=== PATIENT | female | born 1990 | race Native Hawaiian/Other Pacific Islander ===

== ENCOUNTER 2023-01-31 15:40 | Emergency (ER) | payer MEDICAID ==
[~2023-01-31] VITALS: Ht 170.2 cm; Wt 65.0 kg
[2023-01-31 15:50] VITALS: BP 104/73; PULSE 88; RESP 18; TEMP 98.1; O2SAT 100
[2023-01-31] MEDS ORDERED: NAPR-56 PO (18:40)
[2023-01-31] MEDS ORDERED: HYDR25SU32 RC (18:40)
== END 2023-01-31 19:42 | disposition home or self-care (01) ==
LOC: ER 15:42
DX: K62.5 Hemorrhage of anus and rectum (principal); Z88.0 Allergy status to penicillin
CPT/HCPCS: 99283

== ENCOUNTER 2023-09-28 01:44 | Emergency (ER) | payer BC, MEDICAID ==
[~2023-09-28] VITALS: Ht 162.6 cm; Wt 57.0 kg
[~2023-09-28 01:44] MED LIST: HYDR25SU32 RC
[2023-09-28] MEDS ORDERED: IBUP-1984 PO (02:02)
[2023-09-28] MEDS: ondansetron/PF 4mg/2ml inj IV ONE (02:31)
[2023-09-28] MEDS: orphenadrine citrate 60mg/2ml inj. IM ONE (02:32)
[2023-09-28] MEDS: morphine 4 MG/ML inj SYRINge IV ONE ×2 (02:32→07:17)
[2023-09-28] MEDS: acetaminophen 325mg tablet PO ONE (02:33)
[2023-09-28 02:34] LABS: BASOPHILS % (AUTO) 0.3 % (0-1); EOSINOPHILS # (AUTO) 0.1 X10'3 (0-0.9); EOSINOPHILS % (AUTO) 0.8 % (0-6); HEMATOCRIT 36.5 % (35.0-45.0); HEMOGLOBIN 12.1 g/dl (12.0-16.0); LYMPHOCYTES # (AUTO) 1.8 X10'3 (1.1-4.8); LYMPHOCYTES % (AUTO) 24.3 % (21-51); MEAN CORPUSCULAR HEMOGLOBIN 27.7 PG (27.0-31.0); MEAN CORPUSCULAR HGB CONC 33.3 g/dL (33.0-36.5); MEAN CORPUSCULAR VOLUME 83.4 FL (78-98); MEAN PLATELET VOLUME 8.4 FL (7.4-10.4); MONOCYTES # (AUTO) 0.7 X10'3 (0-0.9); MONOCYTES % (AUTO) 8.9 % (2-12); NEUTROPHILS % (AUTO) 65.7 % (42-75); PLATELET COUNT 232 X10'3 (140-440); RED BLOOD COUNT 4.37 X10'6 (4.20-5.60); RED CELL DISTRIBUTION WIDTH 14.2 % (11.5-14.5); WHITE BLOOD COUNT 7.5 X10'3 (4.5-11.0)
[2023-09-28 02:47] LABS: ALBUMIN 3.8 G/DL (3.4-5.0); ANION GAP 13 (8-16); BLOOD UREA NITROGEN 11 MG/DL (7-18); BUN/CREATININE RATIO 12.1 (10.0-20.0); CALCIUM 8.7 MG/DL (8.5-10.1); CHLORIDE 107 MMOL/L (99-107); CREATINE KINASE 86 U/L (26-192); CREATININE 0.91 MG/DL (0.40-0.90); GLUCOSE 95 MG/DL (70-104); POTASSIUM 3.7 MMOL/L (3.5-5.1); SODIUM 143 MMOL/L (135-145); TOTAL CARBON DIOXIDE 23.5 MMOL/L (24-32); eCRCL 75 ML/MIN; eGFR 71 ML/MIN
[2023-09-28 06:25] VITALS: TEMP 98.9
[2023-09-28 06:34] LABS: URINE HCG NEGATIVE (NEG)
[2023-09-28 06:39] LABS: BILIRUBIN,URINE NEGATIVE (Neg); CLARITY,URINE TURBID (Clear); COLOR,URINE YELLOW (Yellow); GLUCOSE, URINE NEGATIVE (Neg); KETONES,URINE NEGATIVE (Neg); LEUKOCYTE ESTERASE ,URINE NEGATIVE (Neg); NITRITES, URINE NEGATIVE (Neg); OCCULT BLOOD,URINE LARGE (Neg); PROTEIN,URINE NEGATIVE (Neg); UROBILINOGEN,URINE 0.2 E.U/dL (0.2-1.0)
[2023-09-28 06:43] LABS: UA COLLECTION TYPE NON-SPECIFIED
[2023-09-28 07:01] LABS: SQUAMOUS EPITHELIAL CELL,UR MANY /LPF (FEW); TRANSITIONAL EPI CELLS,URINE FEW /HPF
[2023-09-28 07:03] LABS: BACTERIA,URINE FEW /HPF (Neg); MUCUS STRANDS FEW /LPF (Neg); RBC,URINE TNTC /HPF (0-2)
[2023-09-28] MEDS: dexamethasone sod phosphate 10mg/ml inj IM STA (07:17)
[2023-09-28] MEDS ORDERED: METH4TAB81 PO (10:42)
[2023-09-28 10:57] VITALS: BP 101/63; PULSE 67; RESP 16; O2SAT 99
== END 2023-09-28 10:59 | disposition home or self-care (01) ==
LOC: ER 01:44
DX: M51.26 Other intervertebral disc displacement, lumbar region (principal); M48.00 Spinal stenosis, site unspecified; Z88.0 Allergy status to penicillin; Z79.1 Long term (current) use of non-steroidal anti-inflammatories (NSAID); Z79.899 Other long term (current) drug therapy
CPT/HCPCS: 36415; 72148; 80048; 81001; 81025; 82550; 85025; 96372; 96374; 96375; 96376; 99285; J1100; J2270; J2360; J2405

== ENCOUNTER 2025-04-11 14:25 | Outpatient (CLI) | payer BC ==
[~2025-04-11 14:25] MED LIST changes: +IBUP-1984 PO; +METH4TAB81 PO
--- NOTE | 2025-04-12 13:37 | RADIOLOGY REPORT ---
CLINICAL HISTORY: OTHER LOWER BACK PAIN,SPINAL STENOSIS, LUMBAR REGION WITHOUT NEUROGENIC CLA TECHNIQUE: MRI of the lumbar spine was performed without gadolinium. COMPARISON: MR MRI LUMBAR SPINE on DOS: 09/28/23 FINDINGS: Is straightening of the normal lumbar lordosis, likely due to patient positioning. Vertebral body heights are maintained. There is similar-appearing L4-L5 disc desiccation and moderate L5-S1 disc space loss the conus medullaris terminates appropriately at L1. At T12-L1, L1-L2, L2-L3, and L3-L4 disc spaces are unremarkable. At L4-L5, there is similar-appearing tiny the, posterior annular fissure, and ligamentum flavum thickening which do not result in significant central canal or neural foraminal narrowing. At L5-S1, there has been significant interval improvement in previous extrusion. Residual tiny disc extrusion extending 2 mm below the level of the disc. There is no significant anteroposterior component. IMPRESSION: Significant interval improvement in L5-S1 disc extrusion with minimal tiny residual extrusion present. No central canal or neural foraminal narrowing. L4-L5 annular fissure.
== END 2025-04-11 23:59 | disposition home or self-care (01) ==
LOC: MRI02 14:25
PROVIDERS: ATTEND Nurse Practitioner Adult Health
DX: M51.27 Other intervertebral disc displacement, lumbosacral region (principal); M48.061 Spinal stenosis, lumbar region without neurogenic claudication; M47.27 Other spondylosis with radiculopathy, lumbosacral region; M48.07 Spinal stenosis, lumbosacral region
CPT/HCPCS: 72148